=== PATIENT | female | born 2000 | race Caucasian/White ===

== ENCOUNTER 2021-01-11 16:50 | Emergency (ER) | payer BC, SELFPAY ==
[2021-01-11 17:10] VITALS: BP 117/58; PULSE 67; RESP 12; TEMP 36.9; O2SAT 100
--- NOTE | 2021-01-11 17:35 | ED.PEDHENT ---
HPI - Pediatric HENT General Chief complaint: Upper Respiratory Infection Stated complaint: sore throat/tight chest Source: patient and RN notes reviewed Limitations: no limitations History of Present Illness HPI Narrative: The college premed student, a non-smoker/nondrinker, presents with throat discomfort. Patient states she came here for strep test concerned because she has a sore throat and upper neck discomfort. She comments she has a about half week history of definitely positional 'burning'/'scraping' throat pain. No fever, weight loss, vomiting/diarrhea, Covid symptoms[she had disease with proven antibodies late last year] Related Data Home Medications Medication Instructions Recorded Confirmed norgestimate-ethinyl estradiol 1 tablet PO DAILY 01/11/21 01/11/21 [Tri-Sprintec (28)] Allergies Allergy/AdvReac Type Severity Reaction Status Date / Time No Known Allergies Allergy Verified 01/11/21 17:02 Pediatric Review of Systems : Review of Systems: General/Constitutional: No weight loss,fever Eyes: N0: Redness,discharge Ears/Nose/Throat: No: Epistaxis,ear discharge Respiratory: Denies: Hemoptysis Gastrointestinal: No Vomiting, Bleeding-rectal Skin: No Lumps, eruption Neurologic: No Focal Weakness,Sz Hematologic: Denies: Petechiae/Purpura Psychiatric: No: Suicida ideationl All Other Systems: Reviewed and Negative PMFSH Comments At time of signature, agree with nursing past medical, surgical, social and family history. There is no relevant family history pertinent to the presenting complaint Pediatric Exam Narrative: Physical exam: General Appearance: Well appearing, Conjunctiva clear Ears: External ear normal Nose: Normal nose Mouth/Throat: Normal appearing, Normal lips, Supple Respiratory: Airway patent, No respiratory distress Cardiovascular: RRR Abdomen: Soft, Non-tender, No massess, No organomegaly (no rebound/ surgical signs), Hyperactive bowel sounds Musculoskeletal: Full ROM Skin: Warm, Dry Neurological: A&O x3, CN II-X intact Psychiatric: Normal mood, Normal affect Course Vital Signs Vital signs: Vital Signs Temperature 98.5 F 01/11/21 17:10 Pulse Rate 67 01/11/21 17:10 Respiratory Rate 12 01/11/21 17:10 Blood Pressure 117/58 L 01/11/21 17:10 Pulse Oximetry 100 01/11/21 17:10 Temperature 98.5 F 01/11/21 17:10 Pulse Rate 67 01/11/21 17:10 Respiratory Rate 12 01/11/21 17:10 Blood Pressure 117/58 L 01/11/21 17:10 Pulse Oximetry 100 01/11/21 17:10 Medical Decision Making Vital Signs Vital Signs: Vital Signs Temperature 98.5 F 01/11/21 17:10 Pulse Rate 67 01/11/21 17:10 Respiratory Rate 12 01/11/21 17:10 Blood Pressure 117/58 L 01/11/21 17:10 Pulse Oximetry 100 01/11/21 17:10 Temperature 98.5 F 01/11/21 17:10 Pulse Rate 67 01/11/21 17:10 Respiratory Rate 12 01/11/21 17:10 Blood Pressure 117/58 L 01/11/21 17:10 Pulse Oximetry 100 01/11/21 17:10 Lab Data Labs: Strep Screen Presumptive Negative *(Reference Range: Negative)* Discharge Plan Discharge Clinical Impression: Acid reflux Patient Disposition: Home, Self-Care Condition: Stable Instructions: GERD (Gastroesophageal Reflux Disease) (ED) Additional Instructions: You may try OTC preparations like Pepcid, Maalox/ Mylanta also Prescriptions: New Lidocaine Viscous 2 % solution 5 ml MUCOUS MEM QID PRN (Reason: pain) Qty: 100 RF: 1 omeprazole 20 mg capsule,delayed release(DR/EC) 20 mg PO DAILY Qty: 30 RF: 2 No Action norgestimate-ethinyl estradiol [Tri-Sprintec (28)] 0.18/0.215/0.25 mg-35 mcg (28) Tablet 1 tablet PO DAILY RF: 0 Follow-up/Referrals: Cady Johnson MD [Other]
== END 2021-01-11 17:41 | disposition home or self-care (01) ==
PROVIDERS: Emergency Provider Emergency Medicine
DX: K21.9 Gastro-esophageal reflux disease without esophagitis (principal)
CPT/HCPCS: 87081; 87880; 99213; G0463

== ENCOUNTER → 2021-07-07 10:47 | Outpatient (CLI) | payer BC, SELFPAY ==
--- NOTE | ~2021-07-07 | US_ITS ---
EXAMINATION: US pelvic complete w TV DATE: 07/07/2021 11:56 INDICATION: Pelvic pain Comparison:No prior studies for comparison. TECHNIQUE: Multiple transabdominal and endovaginal sonographic images of the pelvis performed. FINDINGS: The uterus measures 5.9 x 2.9 x 4.7 cm. The endometrial complex measures 2.3 mm. The right ovary measures 2.4 x 1.3 x 1.7 cm and the left ovary measures 2.7 x 1.7 x 2.6 cm. There ar e small follicles in each ovary. Normal doppler signal in both ovaries. There is no free fluid in the pelvis. There are no abnormal masses seen on either side. IMPRESSION: 1. Unremarkable pelvic ultrasound. Reviewed, dictated and finalized at location A.
== END ==
PROVIDERS: Visit Provider Obstetrics & Gynecology
DX: R10.2 Pelvic and perineal pain (principal)
CPT/HCPCS: 76830; 76856

== ENCOUNTER → 2022-08-24 08:01 | Outpatient (CLI) | payer BC, SELFPAY ==
--- NOTE | ~2022-08-24 | US_ITS ---
EXAMINATION: US pelvic complete w TV DATE: 08/24/2022 08:25 INDICATION: Intra-abdominal and pelvic swelling and fullness TECHNIQUE: Multiple transabdominal and endovaginal sonographic images of the pelvis were obtained. COMPARISON: 07/07/2021 FINDINGS: The uterus measures 5.1 x 2.6 x 4.1 cm. The endometrial complex measures 3 mm. An IUD is pr esent in expected position. The right ovary measures 2.9 x 1.5 x 1.4 cm. The left ovary measures 2.7 x 1.5 x 1.5 cm. There is normal vascular flow in the ovaries. There is no free fluid in the pelvis. IMPRESSION: 1. No sonographic correlate for the patient's symptoms. Reviewed, dictated and finalized at location B. [facility] RE[employer]
== END ==
PROVIDERS: PCP Obstetrics & Gynecology; Visit Provider Obstetrics & Gynecology
DX: R19.00 Intra-abdominal and pelvic swelling, mass and lump, unspecified site (principal)
CPT/HCPCS: 76830; 76856